=== PATIENT | female | born 1935 | race Two or more races ===

== ENCOUNTER 2022-03-24 15:57 | Inpatient (IN) | payer OTHER ==
[~2022-03-24] VITALS: Ht 167.6 cm; Wt 47.0 kg
[2022-03-24] MEDS ORDERED: PIPERACILLIN-TAZOB 3.375GM 100 ML IV ONE ×2 (17:15→18:00)
[2022-03-24] MEDS ORDERED: SODIUM CHLORIDE 0.9% 1,400 ML IV ONE (17:15)
[2022-03-24 17:51] LABS: Basophils # (auto) 0 10 ^3/uL (0-0.2); Basophils % (auto) 0.3 % (0.0-2.0); Eosinophils # (auto) 0.1 10 ^3/uL (0-0.8); Eosinophils % (auto) 0.6 % (0.0-7.0); Hematocrit 40.7 % (36.0-46.0); Hemoglobin 13.8 g/dL (12.2-16.2); Lymphocytes # (auto) 0.6 10 ^3/uL (0.4-5.4); Lymphocytes % (auto) 5.4 % (10.0-50.0); Mean Corpuscular Hemoglobin 29.5 pg (28.0-32.0); Mean Corpuscular Volume 86.7 fL (80.0-100.0); Monocytes # (auto) 0.5 10 ^3/uL (0-1.3); Monocytes % (auto) 4.8 % (0.0-12.0); Neutrophils # (auto) 10.1 10 ^3/uL (1.6-8.6); Neutrophils % (auto) 88.9 % (37.0-80.0); Red Cell Distribution Width 14.3 % (11.8-14.3); White Blood Cell 11.4 10^3/uL (4.4-10.8)
[2022-03-24 18:09] LABS: Albumin 3.2 g/dL (3.4-5.0); Calcium 8.3 mg/dL (8.5-10.1); Potassium 3.7 mmol/L (3.5-5.1)
[2022-03-24 18:11] LABS: Bilirubin, Total 1.1 mg/dL (0.2-1.0); Total Protein 7.3 g/dL (6.4-8.2)
[2022-03-24 18:35] LABS: INR 1.13 (0.9-1.15); Partial Thromboplastin Time 26.6 sec (23.6-33.0)
[2022-03-24 18:44] LABS: Urine Amorphous Crystal FEW /hpf (None Seen); Urine Bacteria FEW /hpf (None Seen); Urine Blood Negative /uL (Negative); Urine Specific Gravity 1.012 (1.001-1.035); Urine WBC 2 /hpf (0 - 5)
[2022-03-24] MEDS: VANCOMYCIN 1GM/250ML 250 ML IV ONE ×2 (18:56→19:00)
[2022-03-24] MEDS ORDERED: HYDROcodone-ACET 5/325MG TAB PO PRN (21:45)
[2022-03-24] MEDS ORDERED: ACETAMINOPHEN 325 MG TAB PO PRN (21:45)
[2022-03-24] MEDS ORDERED: DOCUSATE SOD 100 MG CAP PO PRN (21:45)
[2022-03-24] MEDS ORDERED: ONDANSETRON HCL 4 MG/2 ML VIAL IV PRN (21:45)
[2022-03-24] MEDS: PIPERACILLIN-TAZOB 3.375GM 100 ML IV SCH (22:00)
[2022-03-24] MEDS: SODIUM CHLOR 0.9% PF (SALINE LOCK) 10ML VIAL/SYR IV SCH (22:05)
[2022-03-24] MEDS: ASCORBIC ACID 500 MG TAB PO SCH (22:15)
[2022-03-24] MEDS ORDERED: NITROGLYCERIN 0.4 MG SL TAB SL PRN (23:15)
[2022-03-24] MEDS ORDERED: MORPHINE SULFATE INJ 2 MG/ml SYRG IV PRN (23:15)
[2022-03-24] MEDS: DOXYCYCLINE 100MG/250ML 250 ML IV SCH (23:35)
[2022-03-25] MEDS: SODIUM CHLOR 0.9% PF (SALINE LOCK) 10ML VIAL/SYR IV SCH ×2 (07:00→14:08)
[2022-03-25] MEDS: PIPERACILLIN-TAZOB 3.375GM 100 ML IV SCH ×2 (07:17→15:07)
[2022-03-25 07:50] LABS: Basophils # (auto) 0 10 ^3/uL (0-0.2); Basophils % (auto) 0.1 % (0.0-2.0); Eosinophils # (auto) 0.1 10 ^3/uL (0-0.8); Eosinophils % (auto) 0.8 % (0.0-7.0); Hematocrit 32.9 % (36.0-46.0); Hemoglobin 11.2 g/dL (12.2-16.2); Lymphocytes # (auto) 1.4 10 ^3/uL (0.4-5.4); Lymphocytes % (auto) 13.9 % (10.0-50.0); Mean Corpuscular Hemoglobin 29.4 pg (28.0-32.0); Mean Corpuscular Volume 86.4 fL (80.0-100.0); Monocytes # (auto) 0.7 10 ^3/uL (0-1.3); Monocytes % (auto) 7.1 % (0.0-12.0); Neutrophils # (auto) 8.1 10 ^3/uL (1.6-8.6); Neutrophils % (auto) 78.1 % (37.0-80.0); Red Cell Distribution Width 14.4 % (11.8-14.3); White Blood Cell 10.4 10^3/uL (4.4-10.8)
[2022-03-25 08:10] LABS: Albumin 2.2 g/dL (3.4-5.0); BUN/Creatinine Ratio 19.6; Calcium 7.4 mg/dL (8.5-10.1)
[2022-03-25 08:13] LABS: Bilirubin, Total 1.4 mg/dL (0.2-1.0); Total Protein 5.2 g/dL (6.4-8.2)
[2022-03-25 08:22] LABS: Potassium 2.9 mmol/L (3.5-5.1)
[2022-03-25] MEDS ORDERED: FAMOTIDINE (10MG/ML) 2ML VL IV SCH (10:00)
[2022-03-25] MEDS ORDERED: SOD CHL 0.9%/ KCL 40MEQ 1,000 ML IV ONE (11:00)
[2022-03-25] MEDS: MEMANTINE HCL 5 MG TAB PO SCH (11:07)
[2022-03-25] MEDS: MULTIPLE VITAMIN TAB PO SCH (11:08)
[2022-03-25] MEDS: ASCORBIC ACID 500 MG TAB PO SCH ×2 (11:08→22:37)
[2022-03-25] MEDS: ZINC SULFATE 220mg CAP or TAB PO SCH (11:08)
[2022-03-25] MEDS: ENOXAPARIN SOD 40 MG/0.4 ML SYRINGE SC SCH (11:10)
[2022-03-25] MEDS: DOXYCYCLINE 100MG/250ML 250 ML IV SCH (12:49)
[2022-03-25 13:02] LABS: Alcohol, Urine < 3.0 mg/dL (0-10); Amphetamine Screen, Urine NEGATIVE (NEGATIVE); Barbiturate Scree,Urine NEGATIVE (NEGATIVE); Benzodiazephine Screen, Urine NEGATIVE (NEGATIVE); Cannabinoid Screen, Urine NEGATIVE (NEGATIVE); Cocaine Screen, Urine NEGATIVE (NEGATIVE); Opiate Scree,Urine NEGATIVE (NEGATIVE); Phencyclidine Screen, Urine NEGATIVE (NEGATIVE)
[2022-03-25 18:23] LABS: BUN/Creatinine Ratio 18.8; Calcium 7.4 mg/dL (8.5-10.1); Potassium 3.4 mmol/L (3.5-5.1)
[2022-03-25] MEDS ORDERED: SOD CHL 0.9%/ KCL 20MEQ 1,000 ML IV SCH (19:45)
[2022-03-25 22:00] VITALS: BP 135/68
[2022-03-25] MEDS: PIPERACILLIN-TAZOB 2.25GM 50 ML IV SCH (22:36)
[2022-03-26] MEDS: DOXYCYCLINE 100MG/250ML 250 ML IV SCH ×2 (01:10→11:31)
[2022-03-26] MEDS: SODIUM CHLOR 0.9% PF (SALINE LOCK) 10ML VIAL/SYR IV SCH ×2 (01:10→07:56)
[2022-03-26] MEDS: PIPERACILLIN-TAZOB 2.25GM 50 ML IV SCH ×2 (03:43→09:10)
[2022-03-26 05:00] VITALS: BP 154/71
[2022-03-26] MEDS ORDERED: DOXY-286 PO (07:04)
[2022-03-26] MEDS ORDERED: MEMA7CAP OR (07:04)
[2022-03-26 08:30] VITALS: BP 135/55
[2022-03-26] MEDS: MULTIPLE VITAMIN TAB PO SCH (09:11)
[2022-03-26] MEDS: ZINC SULFATE 220mg CAP or TAB PO SCH (09:11)
[2022-03-26] MEDS: ASCORBIC ACID 500 MG TAB PO SCH (09:11)
[2022-03-26] MEDS: ENOXAPARIN SOD 40 MG/0.4 ML SYRINGE SC SCH (09:11)
[2022-03-26] MEDS: MEMANTINE HCL 5 MG TAB PO SCH (09:11)
[2022-03-26] MEDS ORDERED: POTA10TA51 PO (11:52)
[2022-03-26] MEDS ORDERED: POTASSIUM EFFERVESENT TAB 25 MEQ PO ONE (12:00)
[2022-03-26 13:07] VITALS: BP 142/66
[2022-03-26 14:35] VITALS: BP 135/55
[2022-03-27] MEDS ORDERED: FAMOTIDINE (10MG/ML) 2ML VL IV SCH (10:00)
== END 2022-03-26 17:10 | disposition home or self-care (01) | DRG 72 ==
LOC: ER 15:57 → OVERFLOW 23:12 → WEST WING 03-25 20:13
PROVIDERS: ADMIT Nurse Practitioner Family; ATTEND Family Medicine
DX: G93.41 Metabolic encephalopathy (principal); E87.6 Hypokalemia; D72.829 Elevated white blood cell count, unspecified; E86.0 Dehydration; F03.90 Unspecified dementia, unspecified severity, without behavioral disturbance, psychotic disturbance, mood disturbance, and anxiety; M25.472 Effusion, left ankle; Z20.822 Contact with and (suspected) exposure to COVID-19; S93.409A Sprain of unspecified ligament of unspecified ankle, initial encounter; X58.XXXA Exposure to other specified factors, initial encounter; Y93.89 Activity, other specified; Y92.89 Other specified places as the place of occurrence of the external cause; Y99.8 Other external cause status; Z88.2 Allergy status to sulfonamides; Z88.1 Allergy status to other antibiotic agents
CPT/HCPCS: 36415; 70450; 71045; 73610; 73700; 80048; 80053; 80307; 81001; 83605; 83880; 84484; 85025; 85379; 85610; 85730; 87040; 87086; 93005; 96365; 96366; 96367; G0378; J2543; J3490